=== PATIENT | male | born 1970 | race Caucasian/White ===

== ENCOUNTER → 2016-12-16 | Outpatient (CLI) | payer OTHER ==
[~2016-12-16] MED LIST: BUPIVACAINE 0.25% 30 ML SDV ONE; LIDOCAINE 1% 300 MG/30 ML SDV ONE
== END ==
LOC: FIMAGING 08:01
PROVIDERS: ATTEND Radiology Diagnostic Radiology
PROC: 3E023KZ Introduction of Other Diagnostic Substance into Muscle, Percutaneous Approach (ICD-10-PCS; principal; 2016-12-16)
DX: S76.312A Strain of muscle, fascia and tendon of the posterior muscle group at thigh level, left thigh, initial encounter (principal)

== ENCOUNTER → 2018-07-20 | Outpatient (CLI) | payer OTHER | LOC: FIMAGING 12:44 | PROVIDERS: ATTEND Radiology Diagnostic Radiology | PROC: 3E023GC Introduction of Other Therapeutic Substance into Muscle, Percutaneous Approach (ICD-10-PCS; principal; 2018-07-20) | DX: M67.80 Other specified disorders of synovium and tendon, unspecified site (principal) ==